=== PATIENT | female | born 1980 | race Caucasian/White ===

== ENCOUNTER 2019-06-23 07:49 | Day surgery (SDC) | payer BC ==
[~2019-06-23] VITALS: Ht 167.6 cm; Wt 63.5 kg
[2019-06-23 08:13] LABS: HCG,QUAL RESULT NEGATIVE (NEGATIVE)
[2019-06-23] MEDS ORDERED: fentaNYL CITRATE/PF 100 MCG/2 ML AMP IVP PRN ×2 (10:00)
[2019-06-23] MEDS ORDERED: ONDANSETRON HCL 4 MG/2 ML VIAL IVP PRN (10:00)
[2019-06-23] MEDS ORDERED: MIDAZOLAM HCL 5 MG/ML VIAL (VERSED) IV ONE (10:55)
[2019-06-23] MEDS ORDERED: NS IRRIG SOLN 1000 ML IR ONE (10:55)
[2019-06-23] MEDS ORDERED: PROPOFOL 200MG/ 20ML VIAL (DIPRIVAN) IV ONE (10:55)
[2019-06-23] MEDS ORDERED: SEVOFLURANE 15 MIN GAS INH ONE (10:55)
[2019-06-23] MEDS ORDERED: BACITRACIN 1 GM OINT TP ONE (10:55)
[2019-06-23] MEDS ORDERED: KETOROLAC TROMETHAMINE 30 MG VIAL ONE (10:55)
[2019-06-23] MEDS ORDERED: LR 1,000 ML IV.SOLN IV ONE (10:55)
[2019-06-23 12:44] VITALS: BP_SYST 110
== END 2019-06-23 12:48 | disposition home or self-care (01) ==
LOC: SMU 07:49 → SDS 07:49
PROVIDERS: ATTEND Otolaryngology
DX: D37.05 Neoplasm of uncertain behavior of pharynx (principal); J35.8 Other chronic diseases of tonsils and adenoids; F41.9 Anxiety disorder, unspecified; G47.63 Sleep related bruxism; I48.91 Unspecified atrial fibrillation; Z88.1 Allergy status to other antibiotic agents
CPT/HCPCS: 42808; 84703; 88304; J1885; J2250; J2704; J7120